=== PATIENT | male | born 1970 | race Caucasian/White ===

== ENCOUNTER 2023-07-23 14:29 | Emergency (ER) | payer OTHER, SELFPAY ==
--- NOTE | 2023-07-23 14:34 | ED.MALEGU ---
HPI - Male Genitourinary General Chief complaint: Urogenital-Male Stated complaint: Male Problems Time Seen by Provider: 07/23/23 15:00 Source: patient, RN notes reviewed and old records reviewed Mode of arrival: ambulatory Limitations: no limitations History of Present Illness HPI Narrative: 52-year-old male presents to the [facility] with bruising to the shaft of his penis and anterior portion of his testicles/ scrotum. Patient presents with significant other. Patient denies any pain, penile discharge, testicular tenderness, swelling. Patient reports that he woke up this morning after having rough rectal intercourse last night with bruising. Denies any issues urinating. Was able to give a urine sample which did not show anything acute. Bruising noted to the shaft of the penis, no meatus bruising or swelling. Bruising only noted to the anterior portion of the testicles. Onset (ago): day(s) (1) Related Data Home Medications Medication Instructions Recorded Confirmed atorvastatin 40 mg tablet 10/16/19 omeprazole 20 mg capsule,delayed 10/16/19 release ergocalciferol (vitamin D2) 1,250 07/23/23 mcg (50,000 unit) capsule Allergies Allergy/AdvReac Type Severity Reaction Status Date / Time Penicillins Allergy Unknown Unknown Verified 07/23/23 14:47 Review of Systems Review of Systems: All systems reviewed & are unremarkable except as noted in HPI and below Constitutional: Constitutional: Reports no additional constitutional complaints Eyes: Eyes: Reports no additional eye complaints ENT: Reports system reviewed and no additional complaints, except as documented Cardiovascular: Cardiovascular: Reports no additional cardiovascular complaints, Denies chest pain and Denies dyspnea Respiratory: Respiratory: Reports no additional respiratory complaints, Denies chest congestion, Denies cough and Denies dyspnea Gastrointestinal: Gastrointestinal: Reports no additional gastrointestinal complaints, Denies abdominal pain, Denies nausea and Denies vomiting Genitourinary: Genitourinary: Reports as per HPI, Denies change in libido, Denies hematuria, Denies oliguria, Denies difficulty with ejaculations, Denies dysuria, Denies penile discharge, Denies scrotal swelling, Denies testicular mass, Denies testicular pain, Denies urinary frequency, Denies urinary hesitancy, Denies urinary urgency and Reports other (penile bruising) Musculoskeletal: Musculoskeletal: Reports no additional musculoskeletal complaints Integumentary/Breasts: Skin/Breast: Reports system reviewed and no additional complaints, except as docu Neurologic: Reports system reviewed and no additional complaints, except as documented Psychiatric: Psychiatric: Reports no additional psychiatric complaints Allergic/Immunologic: Allergic/Immunologic: Reports no additional allergic/immunologic complaints PMFSH Past Medical History Medical History (Updated 07/23/23 @ 19:20 by Lisandra Godoy APRN) H/O gastroesophageal reflux (GERD) History of high blood pressure Family History Family History Father Hypertension Mother Hypertension Social History Social History (Updated 07/23/23 @ 19:21 by Lisandra Godoy APRN) Smoking status: Never smoker Alcohol intake: current Living arrangements: with family Occupation/Education: occupation Gender identity (if verbalized by the patient): Male Comments At the time of my signature, I reviewed and agree with the nursing past medical, surgical, social, and family history. There is no relevant family history pertinent to the patient complaint. Exam Const: General: cooperative, healthy appearing, comfortable, no acute distress, well developed, alert and well nourished Nutritional Appearance: well nourished and obese Orientation/consciousness: patient oriented x3 Limitations: no limitations HENMT: Head: normal to inspection Ears: hearing gross
[2023-07-23 14:39] VITALS: BP 144/96; PULSE 80; RESP 18; TEMP 36.6; O2SAT 97
[2023-07-23 14:48] VITALS: BP 144/96; PULSE 80; RESP 18; TEMP 36.6; O2SAT 97
== END 2023-07-23 15:23 | disposition home or self-care (01) ==
PROVIDERS: Emergency Provider Nurse Practitioner
DX: S30.21XA Contusion of penis, initial encounter (principal); S30.22XA Contusion of scrotum and testes, initial encounter; X58.XXXA Exposure to other specified factors, initial encounter
CPT/HCPCS: 81003; 99212; G0463

== ENCOUNTER 2023-11-21 16:46 | Emergency (ER) | payer SELFPAY ==
[2023-11-21 17:02] VITALS: BP 118/81; PULSE 104; RESP 16; TEMP 38; O2SAT 98
[2023-11-21 17:19] VITALS: BP 118/81; PULSE 104; RESP 16; TEMP 38; O2SAT 98
--- NOTE | 2023-11-21 17:19 | ED.URI ---
HPI - URI/Sore Throat General Chief Complaint: Upper Respiratory Infection Stated Complaint: fever,cough, delirious Time Seen by Provider: 11/21/23 17:05 Source: patient Mode of arrival: ambulatory Limitations: no limitations History of Present Illness HPI Narrative: Yung is a 53-year-old male patient presenting to the clinic today with complaints of fever, cough, fatigue, chills, and body aches x1 day. He reports symptoms started last night. He denies any chest pain or shortness of breath. MD elicited complaint: sore throat and nasal congestion Related Data Home Medications Medication Instructions Recorded Confirmed atorvastatin 40 mg tablet 40 mg PO DAILY 10/16/19 11/21/23 omeprazole 20 mg capsule,delayed 20 mg PO DAILY 10/16/19 11/21/23 release ergocalciferol (vitamin D2) 1,250 1,250 mcg PO WEEKLY 07/23/23 11/21/23 mcg (50,000 unit) capsule Allergies Allergy/AdvReac Type Severity Reaction Status Date / Time Penicillins Allergy Unknown Unknown Verified 11/21/23 17:02 Review of Systems Review of Systems: Pertinent positives per HPI. Patient denies any rash, headache, visual changes, dizziness, shortness of breath, chest pain, palpitations, nausea, vomiting, diarrhea, constipation, abdominal pain, or any urinary issues. [facility] Past Medical History Medical History (Updated 11/21/23 @ 17:22 by Arnoldo Whitfield APRN) H/O gastroesophageal reflux (GERD) History of high blood pressure Family History Family History Father Hypertension Mother Hypertension Social History Social History Smoking status: Never smoker Alcohol intake: current Living arrangements: with family Occupation/Education: occupation Gender identity (if verbalized by the patient): Male Comments At the time of my signature, I reviewed and agree with the nursing past medical, surgical, social, and family history. There is no relevant family history pertinent to the patient complaint. Exam Narrative: General: Well-developed, well nourished, in no apparent distress Head: Normocephalic, atraumatic Eyes: Pupils equally round and reactive to light bilaterally, EOM intact, sclera and conjunctive clear, no discharge, lids normal Ears: TMs intact and clear, ear canals clear, no drainage, grossly hearing normal. Nose: Nares patent, no discharge, no inflammation, no sinus tenderness. Mouth: Oral pharynx without lesions or masses, good dentition, MMM. Neck: Supple, trachea midline, no enlargement of anterior or posterior cervical nodes, no thyroid masses or goiter palpable. Cardio: Regular rate and rhythm, s1 and s2 normal, no murmur appreciated. Resp: Clear to auscultation bilaterally, no rhonchi, rales, wheezing or rubs Course Course Emergency Course: Portions of this record may have been created with voice recognition software. Level of Care: Express Care Visit Vital Signs Vital signs: Vital Signs Temperature 38.0 C H 11/21/23 17:02 Pulse Rate 104 H 11/21/23 17:02 Respiratory Rate 16 11/21/23 17:02 Blood Pressure 118/81 11/21/23 17:02 Pulse Oximetry 98 11/21/23 17:02 Oxygen Delivery Room Air 11/21/23 17:02 Temperature 38.0 C H 11/21/23 17:19 Pulse Rate 104 H 11/21/23 17:19 Respiratory Rate 16 11/21/23 17:19 Blood Pressure 118/81 11/21/23 17:19 Pulse Oximetry 98 11/21/23 17:19 Oxygen Delivery Room Air 11/21/23 17:19 Vital signs reviewed MDM - URI/Sore Throat MDM Narrative Medical decision making narrative: At the time of visit patient is resting comfortably on the exam table. Patient appears to be nontoxic. Labs: COVID and influenza testing was negative. Plan: I suspect patient has URI/viral syndrome. Supportive measures were discussed with the patient and they voiced understanding discharge instructions and agrees to treatment plan.
== END 2023-11-21 17:28 | disposition home or self-care (01) ==
PROVIDERS: Emergency Provider Nurse Practitioner Family
DX: J06.9 Acute upper respiratory infection, unspecified (principal); B34.9 Viral infection, unspecified; Z20.822 Contact with and (suspected) exposure to COVID-19; K21.9 Gastro-esophageal reflux disease without esophagitis
CPT/HCPCS: 87426; 87804; 99213; G0463